=== PATIENT | male | born 1985 | race Caucasian/White ===

== ENCOUNTER 2022-03-02 15:07 | Emergency (ER) | payer SELFPAY ==
[~2022-03-02] VITALS: Ht 182.9 cm; Wt 84.0 kg
[2022-03-02 15:48] VITALS: BP 120/83
[2022-03-02] MEDS ORDERED: TETRACAINE HCL/PF 0.5% OPTH 4 ML BTL OP ONE (16:05)
[2022-03-02] MEDS ORDERED: FLUORESCEIN OPTH STRIP 1 MG OP ONE (16:10)
[2022-03-02] MEDS ORDERED: ERYT5OIN51 OP (16:24)
--- NOTE | 2022-03-02 17:45 | NUR ---
Patient discharged with v/s stable. Written and verbal after care instructions ABOUT CORNEAL ABRASION given and explained. Patient alert, oriented and verbalized understanding of instructions. Ambulatory with steady gait. All questions addressed prior to discharge. ID band removed. Patient advised to follow up with PMD. Rx of ERYTHROMYCIN given. Patient educated on indication of medication including possible reaction and side effects. Opportunity to ask questions provided and answered.
--- NOTE | 2022-03-02 18:00 | NUR ---
36 Y.O. M C/O L EYE PAIN AFTER A ROCK POSSIBLE FLYING INTO IT AT WORK. 4/10 PAIN. PTS EYE IS RED. VISION IS 20/30 IN BOTH EYES. DENIES N/V/D, SOB AND CHEST PAIN. A&OX4, SKIN INTACT, VITALS WNL FOR PT AND STEADY GAIT. [facility]A [facility]
== END 2022-03-02 17:45 | disposition home or self-care (01) ==
LOC: MED 15:07
DX: S05.02XA Injury of conjunctiva and corneal abrasion without foreign body, left eye, initial encounter (principal); X58.XXXA Exposure to other specified factors, initial encounter; Y93.89 Activity, other specified; Y92.89 Other specified places as the place of occurrence of the external cause; Y99.8 Other external cause status
CPT/HCPCS: 65222; 99284